=== PATIENT | female | born 1965 | race Caucasian/White ===

== ENCOUNTER 2017-04-04 20:30 | Emergency (ER) | payer SELFPAY ==
[~2017-04-04] VITALS: Ht 165.1 cm; Wt 108.9 kg
[~2017-04-04 20:30] MED LIST: CIPRO500 MG PO; HYDROCHLOROTHIA25 MG PO; LISINOPRIL10 MG PO; PERCOCET 5/31 TABLET PO
[2017-04-04 23:01] LABS: HEMATOCRIT 43.2 % (36.0-46.0); MCH 30.1 PG (29.0-34.0); MCHC 33.6 G/DL (30.0-36.0); MCV 89.6 FL (83-99); MEAN PLAT.VOLUME 10.7 uM^3 (9.5-12.4); PLATELET COUNT 200 K/uL (156-360); RBC DIS.WIDTH-CV 13.3 % (11.8-14.6); RBC DIS.WIDTH-SD 43.6 % (39-53); RED BLOOD COUNT 4.82 M/uL (3.80-5.20); WHITE BLOOD COUNT 9.7 K/uL (4.1-10.2)
[2017-04-04 23:11] LABS: CHLORIDE 107 mEq/L (99-109); POTASSIUM 3.5 mEq/L (3.7-5.4); SODIUM 141 mEq/L (136-147)
[2017-04-04 23:13] LABS: GLUCOSE 97 mg/dL (70-99)
[2017-04-04 23:15] LABS: ANION GAP 11 MEQ/L (2-14); TOTAL BILIRUBIN 0.7 mg/dL (0.0-1.0)
[2017-04-04 23:17] LABS: ALKALINE PHOSPHATASE 75 IU/L (3-129); GFR ESTIMATE (CALCULATED) > 59 mL/min/
[2017-04-04 23:18] LABS: UREA NITROGEN (BUN) 15 mg/dL (9-23)
[2017-04-04] MEDS ORDERED: AMOXICILLIN500 MG PO (23:34)
[2017-04-04] MEDS ORDERED: HYDROCHLOROTHIA25 MG PO (23:34)
[2017-04-05 00:23] VITALS: BP 195/97
== END 2017-04-05 00:24 | disposition home or self-care (01) ==
LOC: EXP 20:30 → EME 20:30 → EXP 04-05 00:24
PROVIDERS: Physician Assistant
DX: I10 Essential (primary) hypertension (principal); H92.01 Otalgia, right ear; K08.89 Other specified disorders of teeth and supporting structures; F17.200 Nicotine dependence, unspecified, uncomplicated
CPT/HCPCS: 80053; 85027; 99281; 99284